=== PATIENT | female | born 1955 | race Caucasian/White ===

== ENCOUNTER 2019-03-06 14:47 | Outpatient (CLI) | payer MEDICARE ==
--- NOTE | 2019-03-06 16:56 | CT ---
NONCONTRAST CT LUMBAR SPINE: 03/06/19 HISTORY: Low back pain with pain radiating down left leg. Lumbar radiculopathy. History of prior fusion. TECHNIQUE: Contiguous axial CT images are obtained from the T12-L1 level to the upper sacrum. Sagittal and coron al reformat images are provided. FINDINGS: Vascular calcifications are seen in the abdominal aorta and involving the iliac arteries. Remainder o f the visualized retroperitoneal structures demonstrates a grossly normal nonenhanced CT appearance. There are postsurgical changes of the lumbar spine with bipedicular screws and posterior rods transfi juliet the L4-5 and L5-S1 levels with transverse bar present. Laminectomy defect is present at the L4-5 level. Vertebral body heights are within normal limits. No fracture or subluxation is seen involving the jerri mbar spine. T12-L1 level: There is no disc bulge or disc herniation. Central spinal canal and neural foramina are patent. L1-2 level: There is loss of the intervertebral disc height. There is a mild disc osteophyte complex present with mild facet degenerative changes also noted. There is minimal narrowing of the central sp inal canal. Neural foramina are patent at this level. L2-3 level: There is loss of intervertebral disc height. Vacuum phenomenon is seen in the interverteb ral disc. There is a mild disc osteophyte complex and facet hypertrophic change as well as ligamentou s thickening resulting in mild generalized narrowing of the central spinal canal. The right neural f oramen is patent, but there is moderate left sided neural foraminal narrowing. L3-4 level: There is loss of intervertebral disc height with evidence of vacuum phenomenon. Broad bas ed disc osteophyte complex is present, and there are facet hypertrophic changes and ligamentous thick ening. Moderate narrowing of the central spinal canal is present. There is mild to moderate left side d neural foraminal narrowing with moderate right sided neural foraminal narrowing. L4-5 level: There is limited evaluation of the central canal due to significant artifact from spinal hardware. There does appear to be mild bilateral neural foraminal narrowing primarily related to the mild facet degenerative changes and posterior osteophyte formation. While central canal is difficult to evaluate, there does not appear to be significant bony encroachment on the central spinal canal at this level. L5-S1 level: There is loss of intervertebral disc height. The central spinal canal is difficult to ev aluate due to artifact, but there is no bony encroachment on the central spinal canal at this level. Postoperative changes lumbar spine related to posterior fusion of the L4 through S1 levels. No hardwa re complication is appreciated, although the left sided pedicular screw in L4 does encroach on the L3 -4 intervertebral disc and the superior end plate of the L4 vertebral body. IMPRESSION: 1. Moderate left sided neural foraminal narrowing at the L2-3 level due to bony encroachment wit h generalized mild narrowing of the central spinal canal. 2. Mild to moderate narrowing of the central spinal canal at the L3-4 level with mild to moderat e left sided neural foraminal narrowing. 3. Limited evaluation of the central canal lower lumbar spine, but no bony encroachment is appre ciated. POS: [id number]
== END 2019-03-06 14:48 | disposition home or self-care (01) ==
LOC: BICCT 14:47
PROVIDERS: ATTEND Neurological Surgery
DX: M54.16 Radiculopathy, lumbar region (principal); M48.061 Spinal stenosis, lumbar region without neurogenic claudication
CPT/HCPCS: 72131